=== PATIENT | female | born 1990 | race Two or more races ===

== ENCOUNTER 2025-05-23 17:35 | Emergency (ER) | payer OTHER, SELFPAY ==
[2025-05-23 17:45] VITALS: BP 158/94
--- NOTE | 2025-05-23 21:22 | ED.GENMED ---
History of Present Illness
General
Chief Complaint: Back Pain
Source: patient
Exam Limitations: none
Time Seen by Provider: 05/23/25 20:42
Nursing documentation reviewed up to this point in time: agreed with
History of Present Illness
History of Present Illness:
Patient to emergency department with complaint of worsening low back pain. She states she initially developed low back pain approximately 2 years ago. No specific injury was responsible for her pain. She states she was doing a lot of lifting at
that time and felt that this was the cause of her pain. She was evaluated by her PCP and advised to follow-up with physical therapy. She states that physical therapy relieved her pain and she has been well since. In March she had a slip and
fall and reinjured her back. She states she has been dealing with low back pain since that time. She was evaluated in the emergency department after her fall and had x-rays taken. No fracture was identified. She then continued to follow-up with
her family doctor who prescribed lidocaine patches and Tylenol. She states this has not been helpful. Her PCP has recommended that she have an MRI of her low back performed. PCP office is in the process of scheduling the appointment for this.
She is send is here tonight because the pain has become intolerable. She reports that her physical activity is minimal due to the pain. Brought to ED by family for evaluation. she denies fever chills recent illness. She denies any numbness or
tingling in her lower extremities no bowel or bladder issues no saddle paresthesia no weakness in extremities.
Past History
Past History
ED Past Medical History: Asthma and Psychiatric (Bipolar disorder)
Review of Systems
Review of Systems
Allergies reviewed?: Yes
All Other Systems: ROS reviewed and negative except as documented in HPI and ROS
Constitutional: Reports no symptoms
EENT: Reports no symptoms
Respiratory: Reports no symptoms
Cardiac: Reports no symptoms
ABD/GI: Reports no symptoms
: Reports no symptoms
Musculoskeletal: Reports back pain (Bilateral lower back pain)
Skin: Reports no symptoms
Neurological: Reports no symptoms
Psychiatric: Reports no symptoms
Phy Exam
General Physical Exam
General Presentation: well appearing and mild distress
General age: appears stated age
General Skin: warm and dry
General Habitus: normal
General Mental: alert
General Hydration: appears well hydrated
Gastrointestinal Exam
Gastrointestinal Exam: non tender, soft and non distended
Reflexes
Reflexes: +3: Left patellar and +3: Right patellar
Musculoskeletal Exam
Musculoskeletal Exam: neuro vasc intact and other (Bilateral lower back pain. Pain worse with movement. Pain at times radiates to bilateral hips. No weakness in extremities. Sensation intact bilaterally. Equal strength bilateral.)
Skin Exam
Skin Exam: normal color
Psychiatric Exam
Psychiatric Exam: normal mood/affect
Course
Orders/Labs/Results
Orders:
Orders
05/23/25 21:18
Prednisone [Deltasone] 40 mg PO NOW STA
05/23/25 21:32
Prednisone [Deltasone] 20 mg .ROUTE .STK-MED ONE
Vital Signs
Initial and Last Documented VS:
Initial Vital Signs
Temp Pulse Resp BP Pulse Ox
98.4 F 101 16 158/94 99
05/23/25 17:45 05/23/25 17:45 05/23/25 17:45 05/23/25 17:45 05/23/25 17:45
Last Documented Vital Signs
Temp Pulse Resp BP Pulse Ox
98.4 F 95 18 157/107 100
05/23/25 17:45 05/23/25 21:33 05/23/25 21:33 05/23/25 21:33 05/23/25 21:33
*Pulse Oximetry
SaO2: 99
Oxygen Mode of Delivery: Room air
Patient hypoxic: no
*Critical Care Note
Total Time (30-74mins, 75-104mins- exclusive of procedures): Not Applicable
Update Note
Update Note:
Patient to emergency department for evaluation of low back pain. Pain initially started 2 years ago, resolved with PT, and then returned again after she slipped and fell in March. She has been following with her primary care provider and using
lidocaine patches without improvement. She had outpatient x-rays according to patient and they were negative for any acute findings. Her PCP initially wanted her to start physical therapy but she felt that the pain was too bad this past week to
began so an MRI has been ordered by her PCP. She does not have a date or time for this appointment. On exam she is awake alert and oriented. Afebrile vital signs are stable. She has pain to her bilateral lower back. She reports pain
occasionally wraps around to her bilateral hips and thighs. She has equal strength and sensation bilaterally. She is able to ambulate without special ed assistant, her gait is steady. No evidence of cauda equina on exam tonight. Patient will hold off on
x-rays at this time and will continue with plan for MRI with PCP. Will try a course of prednisone to decrease any inflammation and will add meloxicam daily. She is discharged home and follow-up with her PCP in the a.m. she was given instructions
on signs and symptoms to return to the emergency department and she is agreeable this plan.
ED Attending Note
-
Portions of this chart may have been created with voice recognition software.� Occasional wrong word or��sound alike� substitutions may have occurred due to the inherent limitations of voice recognition software.
Discharge Plan
Departure
Patient Disposition: Home (Routine Discharge)
Date of Disposition: 05/23/25
Time of Disposition: 21:18
Patient with high blood pressure during this ER visit?: No
Condition: Good
Covid-19: Not Applicable
Discharge Problem:
Low back pain
Instructions: Low Back Pain (DC)
Prescriptions:
New
prednisone 10 mg Tablet
See Rx Instructions .ROUTE .COMPLEX Qty: 30 0RF
Rx Instructions:
Take By Mouth:
40 mg daily x3 days, 30 mg daily x3 days,
20 mg daily x3 days, 10 mg daily x3 days.
meloxicam 7.5 mg tablet
7.5 mg PO DAILY Qty: 30 0RF
Referrals:
Eva Reeder MD [Family Provider, Family Practice] - Tomorrow
Interventions
Interventions:
*General Assessment Last Done: 05/23/25 20:00
*Neglect/Abuse Screening Last Done: 05/23/25 20:01
*ED- Fall Risk Assessment Last Done: 05/23/25 19:59
*ED COVID-19 Vaccine History Last Done: 05/23/25 19:59
*ED Influenza Vaccine History Last Done: 05/23/25 19:59
*Nursing Disposition Last Done: 05/23/25 21:33
ED-Musculoskeletal Assessment Last Done: 05/23/25 20:00
Discharge Date and Time
Discharge Date/Time: 05/23/25 21:34
Print Language: WELSH
[2025-05-23] MEDS: DELTASONE 40 MG PO (21:29)
[2025-05-23 21:33] VITALS: BP 157/107
== END 2025-05-23 21:34 | disposition home or self-care (01) ==
LOC: EMR 17:35
PROVIDERS: EMERGENCY PHYSICIAN Student in an Organized Health Care Education/Training Program; FAMILY PHYSICIAN Family Medicine
DX: M54.50 Low back pain, unspecified (principal); J45.909 Unspecified asthma, uncomplicated
CPT/HCPCS: 99283